=== PATIENT | male | born 1995 | race Two or more races ===

== ENCOUNTER 2023-02-26 18:13 | Emergency (ER) | payer OTHER ==
[~2023-02-26] VITALS: Ht 175.3 cm; Wt 84.8 kg
[2023-02-26] MEDS ORDERED: DICLOFENAC POTA50 MG PO (23:16)
== END 2023-02-27 00:30 | disposition home or self-care (01) ==
LOC: ER 18:14
DX: M25.571 Pain in right ankle and joints of right foot (principal)
CPT/HCPCS: 73630; 96372; 99283; J1885